=== PATIENT | male | born 1955 | race African-American/Black ===

== ENCOUNTER → 2020-12-27 | Day surgery (SDC) | payer OTHER ==
[~2020-12-27] MED LIST: ADVIL200 MG PO; ATORVASTATIN CA10 MG PO; FENTANYL CITRATE/PF 100MCG/2 ML INJ ONE; LISINOPRIL5 MG PO; MIDAZOLAM HCL 2 MG/2 ML VIAL ONE; OR PHACO EYE KIT ONE; PREOP PHACO EYE KIT ONE; PROVENTIL HFA6.7 GM INH
[2020-12-27 15:12] VITALS: BP 139/84
== END | disposition home or self-care (01) ==
LOC: OR 11:09
PROVIDERS: ATTEND Ophthalmology
DX: H25.11 Age-related nuclear cataract, right eye (principal); E78.5 Hyperlipidemia, unspecified; I10 Essential (primary) hypertension; R06.02 Shortness of breath; Z88.6 Allergy status to analgesic agent; Z01.812 Encounter for preprocedural laboratory examination; Z20.822 Contact with and (suspected) exposure to COVID-19
CPT/HCPCS: 66982; J2250; J3010; U0002; V2632

== ENCOUNTER → 2021-01-17 | Day surgery (SDC) | payer OTHER ==
[~2021-01-17] MED LIST changes: -FENTANYL CITRATE/PF 100MCG/2 ML INJ ONE; -MIDAZOLAM HCL 2 MG/2 ML VIAL ONE
[2021-01-17 13:15] VITALS: BP 141/85
== END | disposition home or self-care (01) ==
LOC: OR 09:40
PROVIDERS: ATTEND Ophthalmology
DX: H25.12 Age-related nuclear cataract, left eye (principal); I10 Essential (primary) hypertension; E78.5 Hyperlipidemia, unspecified; M54.9 Dorsalgia, unspecified; R06.02 Shortness of breath; Z88.6 Allergy status to analgesic agent; Z01.812 Encounter for preprocedural laboratory examination; Z20.822 Contact with and (suspected) exposure to COVID-19
CPT/HCPCS: 66984; U0002